=== PATIENT | female | born 1985 | race American Indian/Alaskan Native ===

== ENCOUNTER 2022-03-19 09:03 | Inpatient (IN) | payer OTHER ==
--- NOTE | 2022-03-19 09:52 | History and Physical Report ---
<FABIAN BLANCA - Last Filed: 03/19/22 09:52> History of Present Illness Date of examination: 03/19/22 Date of admission: 03/19/22 09:03 Chief complaint: Admission for delivery per [facility]. Medications and Allergies Allergies Allergy/AdvReac Type Severity Reaction Status Date / Time No Known Allergies Allergy Unverified 03/19/22 13:07 Results All other labs normal. <IVY LLOYD - Last Filed: 03/19/22 14:49> History of Present Illness Date of admission: 03/19/22 09:03 History of present illness: Patient is admitted for observation today and will proceed with C/S with BTL tomorrow as recommended by [facility] d/t prev c/s x2, IUGR at 37weeks (tomorrow) and abnormal dopplers and desires BTL Past History Past Medical History: kidney stones Past Surgical History: section (x2), other (kidney stone removal) PRODUCTION SCHEDULER History: denies: abnormal PAP smear, cancer, chlamydia, gonorrhea, hepatitis B, hepatitis C, herpes, HIV, syphilis, trichomonas Family/Genetic History: none Social history: no significant social history - Obstetrical History Expected Date of Delivery: 04/10/22 Actual Gestation: 36 Week(s) 6 Day(s) : 5 Para: 2 Spontaneous Abortions: 2 Number of Living Children: 2 Medications and Allergies Active Meds: Active Medications Citric Acid/Sodium Citrate (Bicitra Oral Liqd 30ml) 30 ml PO ONCE ONE Stop: 03/20/22 08:01 Famotidine (Famotidine 20 Mg/2 Ml Inj) 20 mg IV ONCE ONE Stop: 03/20/22 08:01 Oxytocin/Sodium Chloride (Pitocin/Ns 30 Unit/500ml) 30 units in 500 mls @ 0 mls/hr IV TITR MARICEL; Protocol Cefazolin Sodium (Ancef/Sterile Water 2 Gm/20 Ml) 2 gm in 20 mls @ 80 mls/hr IV PREOP NR; Protocol Stop: 03/20/22 23:59 Azithromycin (Zithromax/Ns) 500 mg in 250 mls @ 250 mls/hr IV ONCE ONE; Protocol Stop: 03/20/22 08:59 Lactated Ringer's (Lactated Ringers) 1,000 mls @ 2,250 mls/hr IV PREOP MARICEL Stop: 03/21/22 12:57 Metoclopramide HCl (Metoclopramide 10 Mg/2 Ml Inj) 10 mg IV ONCE ONE Stop: 03/20/22 08:01 Review of Systems All systems: negative - Physical Exam Breasts: Positive: deferred Lungs: Positive: Normal air movement - Obstetrical FHR: category 1 Results Result Diagrams: 03/19/22 12:30 Abnormal lab results 03/19/22 Range/Units 12:30 MCH 27 L (28-32) pg RDW 15.5 H (13.2-15.2) % Eos % (Auto) 6.0 H (0.0-4.3) % Eos # (Auto) 0.5 H (0.0-0.4) K/mm3 Seg Neutrophils % 70.1 H (40.0-70.0) % All other labs normal. Assessment and Plan - Patient Problems (1) 37 weeks gestation of Current Visit: Yes Status: Acute (2) IUGR (intrauterine growth restriction) Current Visit: Yes Status: Acute (3) Abnormal finding on screen Current Visit: Yes Status: Acute (4) Previous delivery affecting Current Visit: Yes Status: Acute (5) Sterilization Current Visit: Yes Status: Acute Plan to address problem: Risks of regret emphasized. Permanent and irreversible condition explained to patient. Pt verbalized understanding. She declined (B) salpingectomy to reduce her risk for ovarian cancer by desires to proceed with partial salpingectomy for sterilization. 1% failure rate discussed. Consents reviewed. Questions encouraged and answered, she voiced understanding and desires to proceed as documented.
[2022-03-19] MEDS ORDERED: LACTATED RINGERS 1,000 ML IV SCH (12:30)
[2022-03-19 13:33] LABS: Basophils % (Auto) 0.2 % (0.0-1.8); Eosinophils # (Auto) 0.5 K/mm3 (0.0-0.4); Hematocrit 32.7 % (30.3-42.9); Hemoglobin 10.9 gm/dl (10.1-14.3); Lymphocytes # (Auto) 1.4 K/mm3 (1.2-5.4); Lymphocytes % (Auto) 18.2 % (13.4-35.0); Mean Corpuscular HGB Conc 33 % (30-34); Mean Corpuscular Volume 80 fl (79-97); Monocytes # (Auto) 0.4 K/mm3 (0.0-0.8); Monocytes % (Auto) 5.5 % (0.0-7.3); Platelet Count 201 K/mm3 (140-440); Red Cell Distribution Width 15.5 % (13.2-15.2)
[2022-03-19] MEDS ORDERED: ACETAMINOPHEN 325 MG TAB PO PRN (14:42)
[2022-03-19] MEDS ORDERED: DOCUSATE SODIUM 100 MG CAP PO PRN (15:00)
--- NOTE | 2022-03-19 18:26 | Progress Note ---
Assessment and Plan Plan of care again discussed, will proceed with C/S w/ partial salpingectomy tomorrow. Questions encouraged and answered. She voiced understanding and agrees with POC - Patient Problems (1) 37 weeks gestation of Current Visit: Yes Status: Acute (2) IUGR (intrauterine growth restriction) Current Visit: Yes Status: Acute (3) Abnormal finding on screen Current Visit: Yes Status: Acute (4) Previous delivery affecting Current Visit: Yes Status: Acute (5) Sterilization Current Visit: Yes Status: Acute Subjective - Subjective Date of service: 03/19/22 Principal diagnosis: IUP 36 6/7 IUGR, abnml dopplers, prev c/s Interval history: Patient is admitted for observation today and will proceed with C/S with BTL tomorrow as recommended by [facility] d/t prev c/s x2, IUGR at 37weeks (tomorrow) and abnormal dopplers and desires BTL Patient reports: movement normal, no new complaints Objective - Vital Signs Vital Signs: Vital Signs - 12hr 03/19/22 03/19/22 16:18 17:18 Temperature 98.6 F Pulse Rate 97 H 97 H Respiratory 16 Rate Blood Pressure 111/77 Blood Pressure 111/77 [Left] - Exam Breasts: deferred FHR: category 1 Uterine Contraction Monitor Mode: External Uterine Contraction Pattern: Irregular - Labs Labs: Abnormal Labs 03/19/22 12:30 MCH 27 L RDW 15.5 H Eos % (Auto) 6.0 H Eos # (Auto) 0.5 H Seg Neutrophils % 70.1 H Laboratory Results - last 24 hr 03/19/22 03/19/22 12:30 12:30 WBC 7.9 RBC 4.10 Hgb 10.9 Hct 32.7 MCV 80 MCH 27 L MCHC 33 RDW 15.5 H Plt Count 201 Lymph % (Auto) 18.2 [place] % (Auto) 5.5 Eos % (Auto) 6.0 H Baso % (Auto) 0.2 Lymph # (Auto) 1.4 [place] # (Auto) 0.4 Eos # (Auto) 0.5 H Baso # (Auto) 0.0 Seg Neutrophils % 70.1 H Seg Neutrophils # 5.6 Blood Type B POSITIVE Antibody Screen Negative
[2022-03-20] MEDS ORDERED: METOCLOPRAMIDE 10 MG/2 ML INJ IV ONE (08:00)
[2022-03-20] MEDS ORDERED: FAMOTIDINE 20 MG/2 ML INJ IV ONE (08:00)
[2022-03-20] MEDS ORDERED: ceFAZolin/Water 2 GM/20 ML 2 GM/20 ML SYRINGE IV NR (08:00)
[2022-03-20] MEDS ORDERED: BICITRA ORAL LIQD 30ML PO ONE (08:00)
[2022-03-20] MEDS ORDERED: AZITHROMYCIN/NS 500 MG/250 ML 500 MG/250 ML BAG IV ONE (08:00)
[2022-03-20] MEDS ORDERED: OXYTOCIN DRIP 30 UNITS/500 ML BAG IV SCH (08:00)
--- NOTE | 2022-03-20 09:59 | Event Note ---
Date: 03/20/22 Pt awaiting c/s. Currently due to staffing not able to proceed with c/s and she is in line as there are other c/s scheduled ahead of her waiting to be done. I d/w that this is the plan to proceed when we have the staffing available or sooner if baby shows cat 3 tracing. she expressed understanding. Consents signed and placed on the chart.
[2022-03-20] MEDS ORDERED: LACTATED RINGERS 1,000 ML IV SCH (12:00)
[2022-03-20] MEDS ORDERED: METOCLOPRAMIDE 10 MG/2 ML INJ IV SCH (18:00)
[2022-03-20] MEDS ORDERED: FAMOTIDINE 20 MG/2 ML INJ IV SCH (18:00)
[2022-03-20] MEDS ORDERED: BICITRA ORAL LIQD 30ML PO SCH (18:00)
[2022-03-20] MEDS ORDERED: AZITHROMYCIN/NS 500 MG/250 ML 500 MG/250 ML BAG IV SCH (18:00)
[2022-03-20] MEDS ORDERED: ONDANSETRON 4 MG/2 ML INJ ONE (19:39)
[2022-03-20] MEDS ORDERED: PHENYLEPHRINE/NS 1,000 MCG/10 ML SYRINGE (OR USE) IV ONE (19:39)
[2022-03-20] MEDS ORDERED: dexAMETHasone 20 MG/5 ML VIAL ONE (19:39)
[2022-03-20] MEDS ORDERED: ePHEDrine SULFATE 50 MG/1 ML INJ ONE (19:39)
[2022-03-20] MEDS ORDERED: fentaNYL 100 MCG/2 ML INJ ONE (19:40)
[2022-03-20] MEDS ORDERED: KETOROLAC 30 MG/1 ML INJ ONE (19:40)
[2022-03-20] MEDS ORDERED: METHYLERGONOVINE MALEATE 0.2 MG/ML VIAL IM ONE (20:13)
--- NOTE | 2022-03-20 20:59 | Operative Report ---
Operative Report Operative Report: Date of procedure: 03/20/2022 Pre-operative diagnosis: 37 weeks gestation Intrauterine growth restriction Abnormal Dopplers Previous section Desires permanent sterilization Post-operative diagnosis: Same Procedure name(s): 1. Repeat low transverse section via Pfannenstiel skin incision Bilateral partial salpingectomy via modified [place] method Surgeon: Case Management Rn: LOTTIE Anesthesia: Spinal QBL: 540 mL Urine output: 100 mL of clear urine out at end of procedure Fluids: 1500 mL Findings: Liveborn male infant weight 5 pounds 5 ounces Apgars of 8 and 9 at 1 and 5 minutes Grossly normal fallopian tubes and ovaries bilaterally Indications: Patient was sent from maternal- medicine specialist with abnormal Dopplers and indication for delivery. All risk benefits and alternatives were discussed with the patient. Patient desired permanent sterilization. Consents were signed and placed on the chart. Procedure: Patient was taking to the operating room. Patient was then prepped and draped in sterile fashion after anesthesia was found to be adequate. A low transverse skin incision was made with the scalpel through previous incisional scar and carried down to the underlying layer of fascia with the Bovie. The fascia was then incised in the midline and this incision was extended bilaterally with the Bovie. The superior aspect of the fascia was grasped with Rudolph clamps tented upward and dissected off of the anterior rectus muscles wit h the scalpel. In similar fashion the inferior aspect of the fascia was grasped with Rudolph clamps tented upward and dissected off of the anterior rectus muscles. The rectus muscles were then bluntly divided in the midline. The peritoneum was identified and entered into sharply. The bladder blade was replaced. [The Cordell retractor was placed.] A lower transverse uterine incision was made with the scalpel and extended bilaterally with the bandage scissors. Artificial rupture of membranes was performed yielding [clear amniotic fluid]. The was noted to be in cindi breech presentation. Infant was delivered via normal breech extraction without difficulty. The umbilical cord was clamped x2. The cord was cut. The was then placed in sterile bassinet. The placenta was manually extracted in its entirety. The uterus was exteriorized and cleared of all clots and debris. The uterine incision was closed using 0 Vicryl in a running locking fashion. Several [id number] sutures were used to secure excellent hemostasis along the incision line. Attention was then turned to the fallopian tubes. A knuckle of the fallopian tube was suture ligated 2 and transected. Portion of tube was then handed off for pathology. This was done bilaterally The posterior cul-de-sac was copiously irrigated. The uterus was returned to the abdomen. The gutters were also irrigated. The anterior rectus muscles were reapproximated using 3-0 Vicryl. The anterior rectus fascia was reapproximated using 0 Vicryl in a running fashion. The subcuticular fat was reapproximated using 2-0 Vicryl in a running fashion. The skin was reapproximated with a 4-0 Monocryl with a subcuticular stitch.. The patient tolerated the procedure well. Sponge lap and needle counts were all correct x3. Patient was taken to the recovery room awake and in stable condition.
[2022-03-20] MEDS ORDERED: KETOROLAC 30 MG/1 ML INJ IV ONE (21:00)
[2022-03-20] MEDS ORDERED: ONDANSETRON 4 MG/2 ML INJ IV ONE (21:00)
[2022-03-20] MEDS ORDERED: MORPHINE 2 MG/1 ML INJ IV PRN (21:13)
[2022-03-20] MEDS ORDERED: WITCH HAZEL/ GLYCERIN PAD TP PRN (21:13)
[2022-03-20] MEDS ORDERED: SIMETHICONE 80 MG CHEW TAB PO PRN (21:13)
[2022-03-20] MEDS ORDERED: KETOROLAC 30 MG/1 ML INJ IV PRN (21:13)
[2022-03-20] MEDS ORDERED: ONDANSETRON 4 MG/2 ML INJ IV PRN (21:13)
[2022-03-20] MEDS ORDERED: LANOLIN/ZINC/DIMETHICONE (LANSINOH) 7 GM TP PRN (21:13)
[2022-03-20] MEDS ORDERED: NALOXONE 0.4 MG/1 ML INJ IV PRN (21:13)
--- NOTE | 2022-03-20 21:16 | Anesthesia Day of Surgery ---
Anesthesia Day of Surgery - Day of Surgery Patient Examined: Yes Patient H&P Reviewed: Yes Patient is NPO: Yes Beta Blockers: No Cardiac Clearance: No Pulmonary Clearance: No Rafy's Test: N/A
--- NOTE | 2022-03-20 21:16 | Anesthesia Consultation ---
Anesthesia Consult and Med Hx - Airway Anesthetic Teeth Evaluation: Good ROM Head & Neck: Adequate Mental/Hyoid Distance: Adequate Mallampati Class: Class I Intubation Access Assessment: Probably Good - Pulmonary Exam CTA: Yes - Cardiac Exam Cardiac Exam: RRR - Pre-Operative Health Status ASA Pre-Surgery Classification: ASA2 Proposed Anesthetic Plan: Spinal Nerve Block: tap - Pulmonary Hx Smoking: No Hx Asthma: No COPD: No Hx Pneumonia: No - Cardiovascular System Hx Hypertension: No - Central Nervous System Hx Seizures: No Hx Psychiatric Problems: No - Endocrine Hx Renal Disease: No Hx End Stage Renal Disease: No Hx Hypothyroidism: No Hx Hyperthyroidism: No - Hematic Hx Anemia: No Hx Sickle Cell Disease: No - Other Systems Hx Alcohol Use: No
--- NOTE | 2022-03-20 21:19 | Progress Note ---
Regional Anesthesia Block - Regional Anesthesia Block Start Time: 20:54 Stop Time: 21:00 Performed By:: EMMANUEL SMITH Procedure: Rajan tap blocks, 25 0.375% bupi each side using QUIQUE, hieu gonzales, VSS, prep nsf
[2022-03-20] MEDS: KETOROLAC 30 MG/1 ML INJ IV PRN (23:30)
[2022-03-21] MEDS: ceFAZolin/NS 1 GM/50 ML 1 GM/50 ML BAG IV SCH ×2 (03:40→11:20)
[2022-03-21] MEDS: LACTATED RINGERS 1,000 ML IV SCH ×2 (03:40→12:02)
[2022-03-21] MEDS ORDERED: TETANUS,DIPH,PERTUSS(ACELL) VACCINE 0.5 ML SYRINGE IM ONE (06:00)
[2022-03-21 08:54] LABS: Hematocrit 28.1 % (30.3-42.9); Hemoglobin 9.5 gm/dl (10.1-14.3)
[2022-03-21] MEDS: KETOROLAC 30 MG/1 ML INJ IV PRN (09:34)
--- NOTE | 2022-03-21 09:39 | Progress Note ---
Assessment and Plan - Patient Problems (1) delivery delivered Current Visit: Yes Status: Acute Plan to address problem: -Routine postoperative and care -Plan for discharge home postoperative day #2 if remains afebrile and vital sign s remained stable. (2) Sterilization Current Visit: Yes Status: Acute Subjective - Subjective Date of service: 03/21/22 Principal diagnosis: POD#1 s/p RTCS and BTL Interval history: Patient doing well this morning without complaints. She tolerated clear diet and is having regular diet this morning. All questions were addressed and answered. Patient reports: appetite normal, voiding normally, pain well controlled, no dizzy ambulation : doing well Objective - Vital Signs Latest vital signs: Vital Signs Temp Pulse Resp BP BP Pulse Ox Pulse Ox 03/21/22 05:00 98 03/21/22 04:10 97.7 F 74 20 111/74 98 03/21/22 03:45 98 03/21/22 02:10 98 03/21/22 01:54 97.4 F L 95 H 20 130/87 100 03/20/22 23:30 98 03/20/22 22:35 98 03/20/22 22:10 89 19 111/78 03/20/22 21:55 97.5 F L 86 21 106/79 03/20/22 21:40 97 H 20 115/78 03/20/22 21:20 97 H 17 109/74 03/20/22 21:15 105 H 19 102/75 03/20/22 21:10 98.2 F 107 H 21 111/63 03/20/22 19:05 93 H 109/75 03/20/22 19:03 97.9 F 14 100 03/20/22 13:00 98.4 F 16 03/20/22 11:59 92 H 103/78 03/20/22 10:59 82 117/80 03/20/22 09:58 99 H 99/64 Intake and Output 03/20/22 03/21/22 03/21/22 22:59 06:59 14:59 Intake Total 0 240 Output Total 110 900 Balance -110 -660 Intake: IV 0 Oral 240 Output: Urine 110 900 Indwelling Catheter 900 Uretheral (Allen) 10 Other: Total, Intake Amount 240 Total, Output Amount 900 # Voids Indwelling Catheter 1 - Exam Cardiovascular: Present: Normal S1, Normal S2 Lungs: Present: Normal air movement Abdomen: Present: normal appearance, soft, normal bowel sounds. Absent: distention, tenderness, guarding Deep Tendon Reflex Grade: Normal +2 Incision: Present: normal, dry, intact, dressed - Labs Labs: Abnormal lab results 03/21/22 Range/Units 08:02 Hgb 9.5 L (10.1-14.3) gm/dl Hct 28.1 L (30.3-42.9) %
[2022-03-21] MEDS: HYDROcodone/ACETAMINOPHEN 5-325 MG TAB PO PRN ×2 (15:49→21:51)
[2022-03-22] MEDS: IBUPROFEN 800 MG TAB PO PRN ×3 (02:30→22:46)
--- NOTE | 2022-03-22 07:48 | Discharge Summary ---
Providers - Providers Date of Admission: 03/19/22 14:42 Date of discharge: 03/22/22 (Pt has strong desire to go home.) Attending physician: IVY LLOYD Primary care physician: IVY LLOYD Hospitalization Reason for admission: section Delivery: Procedure: repeat low transverse Episiotomy: none Laceration: none Incision: normal, dry, intact, other (Dressing removed. Old dry drainage noted on dressing. ) complications: none baby: male Hospital course: S: Pt is doing well. Voiding, ambulating, and passing flatus okay. O: VSS. H/H 9.5/28.1, asymptomatic anemia of delivery. Incision: dressing removed. Incision intact. Old dry drainage noted. No s/sx of infection. Minimal vaginal bleeding noted. A: 37 y.o. s/p rpt . In good condition . P: Discharge home with instructions. To schedule her incision check and circumcision appointment in 1 week. Condition at discharge: Good Disposition: 01 HOME / SELF CARE / HOMELESS Plan - Discharge Medications Prescriptions: Docusate Sodium [Colace] 100 mg PO BID PRN #60 capsule PRN Reason: Constipation Lidocain2.5%/Prilocai2.5% [Emla] 2 gm TP ONCE #1 tube Ferrous Sulfate [Feosol 325 MG tab] 325 mg PO QDAY #60 tablet Ibuprofen [Motrin 800 MG tab] 800 mg PO Q8HR PRN #30 tablet PRN Reason: Pain, Moderate (4-6) oxyCODONE /ACETAMINOPHEN [Percocet 5/325] 1 tab PO Q4HR #30 tab - Provider Discharge Summary Activity: routine, no sex for 6 weeks, no heavy lifting 4 weeks, no strenuous exercise Diet: routine Instructions: routine Additional instructions: [] Smoking cessation referral if applicable(refer to patient education folder for contact #) [] Refer to [facility] Booklet Call your doctor immediately for: * Fever > 100.5 * Heavy vaginal bleeding ( >1 pad per hour) * Severe persistent headache * Shortness of breath * Reddened, hot, painful area to leg or breast * Drainage or odor from incision. * Keep incision clean and dry at all times and follow doctor's instructions regarding bathing/showering - Follow up plan Follow up: IVY LLOYD MD [Primary Care Provider] - 7 Days (- Congrulations on the of your baby boy! - Thank you for allowing us to take care of you! - Please schedule your son's circumcision and your incision check in the office in 1 week. - You have been given a prescription for EMLA cream. Do not use this cream at home, but bring it with you to your son's circumcision appointment. - Should you have any questions or concerns after discharge, please do not hesitate to call the office at .)
[2022-03-22] MEDS: HYDROcodone/ACETAMINOPHEN 5-325 MG TAB PO PRN ×2 (12:34→19:00)
[2022-03-23] MEDS: HYDROcodone/ACETAMINOPHEN 5-325 MG TAB PO PRN (00:40)
[2022-03-23 08:29] VITALS: BP 117/79
== END 2022-03-23 07:57 | disposition home or self-care (01) | DRG 766 ==
LOC: LD 09:03 → OBSVTOIN 14:42 → APU 03-20 21:02 → OB 03-20 22:59
PROVIDERS: ADMIT Obstetrics & Gynecology; ATTEND Obstetrics & Gynecology
PROC: 10D00Z1 Extraction of Products of Conception, Low, Open Approach (ICD-10-PCS; principal; 2022-03-20)
PROC: 0UB70ZZ Excision of Bilateral Fallopian Tubes, Open Approach (ICD-10-PCS; 2022-03-20)
PROC: 3E0234Z Introduction of Serum, Toxoid and Vaccine into Muscle, Percutaneous Approach (ICD-10-PCS; 2022-03-21)
DX: O36.5930 Maternal care for other known or suspected poor fetal growth, third trimester, not applicable or unspecified (principal); Z3A.37 37 weeks gestation of pregnancy; Z20.822 Contact with and (suspected) exposure to COVID-19; Z37.0 Single live birth; Z23 Encounter for immunization; O34.211 Maternal care for low transverse scar from previous cesarean delivery; O90.81 Anemia of the puerperium; Z30.2 Encounter for sterilization
CPT/HCPCS: 36415; 85014; 85018; 85025; 86592; 86850; 86900; 86901; 88302; 88307; G0378; J3490; G0379; J0690; J1100; J1885; J2370; J2405; J2765; J3010; J7120; U0003